=== PATIENT | female | born 1970 | race Caucasian/White ===

== ENCOUNTER 2019-09-28 12:39 | Emergency (ER) | payer BC, OTHER ==
--- OUTSIDE RECORDS SUMMARY | 2019-09-28 13:25 | XMS REPORT | Continuity of Care Document ---
:1970 External Reference #:[id number] Author Name Farhat Villalobos M.D. Address [address] [place] [id number] Care Team Providers Name Role Phone Yeny Arthur M.D. Care Team Information Coding Tech [phone] Farhat Villalobos M.D. - Care Team Information Coding Tech [phone] Gynecology Problems Description No Active Problems Social History Type Date Description Comments Sex Unknown Tobacco Use Start: Unknown Never Smoked Cigarettes ETOH Use Drinks Alcoholic Beverages Occasionally Allergies, Adverse Reactions, Alerts Description No Known Drug Allergies Medications Active Medications SIG Qnty Indications Ordering Provider Date Hydrocortisone use as 30gm Farhat Villalobos, 12/07/2015 Acetate/Pramoxine directed. MZeferino 2.5-1% Cream Sumatriptan Succinate Unknown 50mg Tablets Medications Administered in Office Medication SIG Qnty Indications Ordering Provider Date Injection-Therapeutic,Prophyla Farhat Villalobos M.D. 02/05/1997 ctic,Diagnostic,Intramusclar-S ubcu. Injection Immunizations Description No Information Available Vital Signs Date Vital Result Comment 09/17/2019 3:28pm BP Systolic 118 mmHg BP Diastolic 78 mmHg Height 63 inches 5'3" Weight 111.00 lb BMI (Body Mass Index) 19.7 kg/m2 09/11/2018 3:19pm BP Systolic 118 mmHg BP Diastolic 76 mmHg Height 63 inches 5'3" Weight 108.00 lb BMI (Body Mass Index) 19.1 kg/m2 Results Test Acquired Date Facility Test Result H/L Range Note Laboratory test 09/17/2019 [facility] Thinprep W/Reflex <pending> finding HR HPV If Asc-US Procedures Description No Information Available Medical Devices Description No Information Available Encounters Description No Information Available Assessments Date Code Description Provider 09/17/2019 Z01.419 Encounter for gynecological examination Farhat Villalobos M.D. (general) (routine) without abnormal findings 09/17/2019 Z12.12 Encounter for screening for malignant Farhat Villalobos M.D. neoplasm of rectum Plan of Treatment Future Appointment(s):09/21/2020 3:00 pm - Farhat Villalobos M.D. at [id number]/17/2019 - Farhat Villalobos M.D.Z01.419 Encounter for gynecological examination (general) (routine) without abnormal findingsComments:Risks, benefits & alternatives fully discussed with patient regarding treatment plan/options -(Test scheduled/recommended and any medications prescribed). Patient fully understood and accepts. All questions answered to the best of my ability.Z12.12 Encounter for screening for malignant neoplasm of rectumComments: Importance of self breast exam. Explained and taught. Functional Status Description No Information Available Mental Status Description No Information Available Referrals Description No Information Available
[2019-09-28 14:10] VITALS: BP 128/87
--- NOTE | 2019-09-28 14:20 | UC ---
Respiratory Complaint HPI - HPI Summary HPI Summary: Ill for 2 weeks with cold symptoms and cough. Started on Augmentin 2 days ago using a telemedicine doctor, but without improvement. States the left side of her ribs hurt with coughing. Smoker and did not get a flu shot - History of Current Complaint Chief Complaint: UCRespiratory Stated Complaint: FEVER, CHEST CONGESTION, LEFT SIDE PAIN Time Seen by Provider: 09/28/19 14:01 Hx Obtained From: Patient Hx Last Menstrual Period: 1 WEEK AGO ?: No Onset/Duration: Gradual Onset, Lasting Weeks Timing: Intermittent Episodes Severity Initially: Mild Severity Currently: Mild Pain Intensity: 8 Character: Cough: Nonproductive Aggravating Factors: Nothing Alleviating Factors: Nothing Associated Signs And Symptoms: Positive: URI, Nasal Congestion - Allergies/Home Medications Allergies/Adverse Reactions: Allergies Allergy/AdvReac Type Severity Reaction Status Date / Time No Known Allergies Allergy Verified 09/28/19 14:05 Home Medications: Home Medications Amoxicillin/Clavulanate TAB* [Augmentin TAB 875*] 875 mg PO BID 09/28/19 [ History Confirmed 09/28/19] Ibuprofen TAB* [Advil TAB*] 400 - 1,000 mg PO Q3H PRN 09/28/19 [History Confirmed 09/28/19] PMH/Surg Hx/FS Hx/Imm Hx Previously Healthy: Yes - Surgical History Surgical History: Yes Surgery Procedure, Year, and Place: Partial Hysterectomy, CHOLECYSTECTOMY. LAPAROSCOPIC SURGERY FOR ENDOMETRIOSIS. TUBAL LIGATION - Family History Known Family History: Positive: Non-Contributory - Social History Lives: With Family Alcohol Use: Rare Substance Use Type: None Smoking Status (MU): Heavy Every Day Tobacco Smoker Type: Cigarettes Amount Used/How Often: 1 PPD Length of Time of Smoking/Using Tobacco: Since Age 5 Review of Systems All Other Systems Reviewed And Are Negative: Yes ENT: Positive: Nasal Discharge Respiratory: Positive: Cough Musculoskeletal: Positive: Other: - Left sided rib pain with coughing Is Patient Immunocompromised?: No Physical Exam Triage Information Reviewed: Yes Appearance: Well-Appearing, No Pain Distress, Well-Nourished Vital Signs: Initial Vital Signs Temp 98.6 F 09/28/19 14:02 Pulse 88 09/28/19 14:02 Resp 20 09/28/19 14:02 BP 128/87 09/28/19 14:02 Pulse Ox 98 09/28/19 14:02 Vital Signs Reviewed: Yes Eyes: Positive: Conjunctiva Clear ENT: Positive: Pharynx normal, Nasal drainage, TMs normal, Uvula midline Neck: Positive: Supple, Nontender, No Lymphadenopathy Respiratory: Positive: Normal breath sounds, No respiratory distress, No accessory muscle use, Rhonchi - Rhonchi LLL posteriorly but with good air movement throughout. Cardiovascular: Positive: RRR, No Murmur, Pulses Normal, Brisk Capillary Refill Musculoskeletal Exam: Normal Neurological Exam: Normal Psychological Exam: Normal Skin Exam: Normal Respiratory Course/Dx - Course Course Of Treatment: chest x-ray:FINDINGS: There is no focal airspace opacification. There is a moderate left pleural effusion.. The cardiomediastinal silhouette is within normal limits. The upper abdominal contents are normal. There is moderate thoracic dextroscoliosis. IMPRESSION: 1. Moderate left pleural effusion. 2. Scoliosis. I initially reviewed the CXR with Dr. Meraz and we felt there is possible a LLL infiltrate as well as the effusion. She is to stop the Augmentin, start Doxycycline, stop smoking and a definite follow up with her PCP in 3-4 days or go to the ER for any SOB and/or worsening symptoms. I gave her the Physician Referral information. She has not been to a doctor in 5 years. We discussed the importance of close follow up as the effusion may not be due to pneumonia. I believe the Left sided rib pain is due to the effusion. - Differential Dx/Diagnosis Provider Diagnosis: Pneumonia, Pleural effusion Discharge ED - Sign-Out/Discharge Documenting (check all that apply): Patient Departure All imaging exams completed and their final reports reviewed: Yes - Discharge Plan Condition: Fair Disposition: HOME Prescriptions: DOXYcycline CAP(*) [DOXYcycline 100MG CAP(*)] 100 mg PO BID 10 Days #20 cap Ibuprofen TAB* [Motrin TAB* 600 MG] 600 mg PO Q8H PRN #21 tab PRN Reason: Pain - Mild Patient Education Materials: Pleural Effusion (ED), Pneumonia (ED) Forms: *Work Release Referrals: No Primary Care Phys,NOPCP [Primary Care Provider] - [facility] [Outside] Additional Instructions: Increase fluids, No dairy products, antacids, or multivitamins 2 hours before you take the Doxycycline and 2 hours after you take it, however you want to definitely take it with food. You have a left lower lobe pneumonia with a pleural effusion. You need to definitely be seen and re-evaluated before the antibiotic is completed. If you develop shortness of breath, difficulty breathing, chest pain, you are to call 911 and go to the ER. Stop smoking, apply a heating pad to the left ribs sore area. Take the Motrin with food. - Billing Disposition and Condition Condition: FAIR Disposition: Home
== END 2019-09-28 15:24 | disposition home or self-care (01) ==
LOC: UCCORT 12:39
DX: J18.9 Pneumonia, unspecified organism (principal); J90 Pleural effusion, not elsewhere classified; M41.9 Scoliosis, unspecified; F17.210 Nicotine dependence, cigarettes, uncomplicated
CPT/HCPCS: 71046; 99202; G0463